=== PATIENT | female | born 1940 | race Caucasian/White ===

== ENCOUNTER 2017-08-18 10:18 | Emergency (ER) | payer MEDICARE, OTHER ==
[2017-08-18] MEDS ORDERED: Ondansetron INJ* 2 MG/ML VIAL IV ONE (14:18)
[2017-08-18] MEDS ORDERED: NS 0.9% 1000 ML* 1,000 ML IV ONE (14:18)
--- NOTE | 2017-08-18 14:18 | RAD ---
INDICATION: Nausea and vomiting. COMPARISON: Comparison is made with a prior KUB series from November 17, 2016. Correlation is also made with an x-ray study of the lumbar spine from January 05, 2017. TECHNIQUE: Supine and upright views of the abdomen were obtained. FINDINGS: The small bowel and colon appear nondistended. No free intraperitoneal air is seen. There is a moderate amount of retained stool present. There are multiple compression fractures of dorsal and lumbar vertebra which appear to be present and better visualized on the prior x-ray study of the lumbar spine from December 2016. IMPRESSION: NO EVIDENCE FOR ACUTE FINDING.
[2017-08-18 17:27] VITALS: BP 131/79
--- NOTE | 2017-08-19 18:16 | ED ---
Robert Davis Angela, scribed for Morris Nice MD on 08/18/17 at 1418 . Complex/Multi-Sys Presentation - HPI Summary HPI Summary: This pt is a 77 y/o female presenting to [facility] c/o nausea and vomiting since 5 days ago. Pt notes she has recently stopped psychotropic medications. Pt is unable to keep medications down. She has decreased PO intake. Pt denies abd pain , fever, chills, chest pain, SOB, recent long travel. She has not used any recent antibiotics. PSHx: . - History Of Current Complaint Chief Complaint: EDNauseaVomitDiarrh Time Seen by Provider: 08/18/17 14:13 Hx Obtained From: Patient Onset/Duration: Lasting Days Timing: Days Associated Signs And Symptoms: Positive: Nausea, Vomiting. Negative: SOB, Chest Pain, Diarrhea, Abdominal Pain, Back Pain, Fever - Allergies/Home Medications Allergies/Adverse Reactions: Allergies Allergy/AdvReac Type Severity Reaction Status Date / Time Bupropion [From Wellbutrin] AdvReac Intermediate Shakes Verified 11/13/16 09:35 PMH/Surg Hx/FS Hx/Imm Hx Endocrine/Hematology History: Denies: Hx Anticoagulant Therapy, Hx Diabetes, Hx Thyroid Disease Cardiovascular History: Reports: Hx Angina, Hx Hypercholesterolemia Denies: Hx Coronary Artery Disease, Hx Hypertension, Hx Myocardial Infarction , Hx Pacemaker/ICD, Hx Valvular Heart Disease Respiratory History: Reports: Hx Asthma, Hx Sleep Apnea - Current CPAP user Denies: Hx Chronic Obstructive Pulmonary Disease (COPD) GI History: Denies: Hx Ulcer Musculoskeletal History: Reports: Hx Osteoporosis Sensory History: Reports: Hx Contacts or Glasses Denies: Hx Hearing Aid Opthamlomology History: Reports: Hx Contacts or Glasses Psychiatric History: Reports: Hx Depression Denies: Hx Panic Disorder - Cancer History Hx Chemotherapy: No Hx Radiation Therapy: No - Surgical History Surgery Procedure, Year, and Place: csections x2 40 years ago. broken ankles bilat repair. broken shoulder repair Infectious Disease History: Yes Infectious Disease History: Denies: Hx Clostridium Difficile, Hx Hepatitis, Hx Human Immunodeficiency Virus (HIV), Hx Shingles, Hx Tuberculosis, Traveled Outside the [place] in Last 30 Days - Family History Known Family History: Positive: Cardiac Disease - father [place] in 40s, Other - breast cancer mother 65 - Social History Alcohol Use: Rare Hx Substance Use: No Substance Use Type: Reports: None Hx Tobacco Use: No Smoking Status (MU): Never Smoked Tobacco Review of Systems Negative: Fever, Chills Positive: Vomiting, Nausea. Negative: Abdominal Pain Genitourinary: Negative Skin: Negative Neurological: Negative All Other Systems Reviewed And Are Negative: Yes Physical Exam - Summary Physical Exam Summary: VITAL SIGNS: Reviewed. GENERAL: ~Patient is a well-developed and nourished female who is lying comfortable in the stretcher. ~Patient is not in any acute respiratory distress. HEAD AND FACE: No signs of trauma. ~No ecchymosis, hematomas or skull depressions. No sinus tenderness. EYES: PERRLA, EOMI x 2, No injected conjunctiva, no nystagmus. EARS: Hearing grossly intact. Ear canals and tympanic membranes are within normal limits. MOUTH: Oropharynx within normal limits. Oral mucosa is a little dry. NECK: Supple, trachea is midline, no adenopathy, no JVD, no carotid bruit, no c- spine tenderness, neck with full ROM. CHEST: Symmetric, no tenderness at palpation LUNGS: Clear to auscultation bilaterally. No wheezing or crackles. CVS: Regular rate and rhythm, S1 and S2 present, no murmurs or gallops appreciated. ABDOMEN: Soft, non-tender. No signs of distention. No rebound no guarding, and no masses palpated. Bowel sounds are normal. EXTREMITIES: FROM in all major joints, no edema, no cyanosis or clubbing. NEURO: Alert and oriented x 3. No acute neurological deficits. Speech is normal and follows commands. SKIN: Dry and warm Triage Information Reviewed: Yes Vital Signs On Initial Exam: Initial Vitals Temp Pulse Resp BP Pulse Ox 98.1 F 92 20 147/69 97 08/18/17 10:52 08/18/17 10:52 08/18/17 10:52 08/18/17 10:52 08/18/17 10:52 Vital Signs Reviewed: Yes Diagnostics - Vital Signs Vital Signs Temp Pulse Resp BP Pulse Ox 08/18/17 12:35 98.3 F 80 20 133/73 100 08/18/17 10:52 98.1 F 92 20 147/69 97 - Laboratory Lab Statement: Any lab studies that have been ordered have been reviewed, and results considered in the medical decision making process. - Radiology Abd XR Xray Interpretation: No Acute Changes - IMPRESSION: No evidence for acute findings. ED physician has reviewed this radiology report and agrees. Radiology Interpretation Completed By: Radiologist - EKG 1424 Cardiac Rate: NL - 73 bpm EKG Rhythm: Sinus Rhythm EKG Interpretation: Left bundle branch block. Complex Multi-Symp Course/Dx Assessment/Plan: This pt is a 77 y/o female presenting to [facility] c/o nausea and vomiting since 5 days ago. Pt notes she has recently stopped psychotropic medications. Pt is unable to keep medications down. She has decreased PO intake. Pt denies abd pain, fever, chills, chest pain, SOB, recent long travel. She has not used any recent antibiotics. PSHx: . I obtained bloodwork. In the ED course, the pt was given IV fluids and Zofran. The pts symptoms resolved with IV fluids and Zofran. The pt is tolerating POs without nausea and vomiting. The bloodwork was never sent; however, the pt is feeling better and has no current complaints. Since the pt wants to go home, I discharged the pt home without any blood work done. She was recommended to return to the ED for any worsening nausea, vomiting, or other complaints. Pt understands and agrees. - Diagnoses Provider Diagnoses: Nausea and vomiting Discharge - Discharge Plan Condition: Stable Disposition: HOME Prescriptions: Ondansetron ODT TAB* [Zofran 4 MG Odt TAB*] 4 mg PO Q6H PRN #10 tab.odt PRN Reason: Vomiting Patient Education Materials: Acute Nausea and Vomiting (ED) Referrals: Khloe Pineda MD [Primary Care Provider] - Additional Instructions: Please follow up with your primary care provider. The documentation as recorded by the Robert hong Angela accurately reflects the service I personally performed and the decisions made by me, Morris Nice MD.
== END 2017-08-18 17:26 | disposition home or self-care (01) ==
LOC: ED 10:18
DX: R11.2 Nausea with vomiting, unspecified (principal)
CPT/HCPCS: 74020; 93005; 96361; 96374; 99283; J2405

== ENCOUNTER 2017-10-18 11:41 | Emergency (ER) | payer MEDICARE, OTHER ==
[2017-10-18 11:58] VITALS: BP 157/77
--- NOTE | 2017-10-18 12:19 | RAD ---
INDICATION: Lateral knee pain after a fall the previous day COMPARISON: None TECHNIQUE: 4 view radiograph of the right knee. FINDINGS: Depicted best on the lateral view, there is a fracture at the mid-level patella. The remaining bones are otherwise intact and appropriately aligned. Degenerative changes include loss of joint space height involving the medial greater than lateral compartments. There is a small to moderate joint effusion. Sclerotic bony density overlying the distal metaphyseal medullary cavity of the femur has a chronic appearance. IMPRESSION: Nondisplaced fracture of the right patella.
--- NOTE | 2017-10-18 12:49 | UC ---
Blu Davis Benjamin, scribed for Morris Goldberg MD on 10/18/17 at 1227 . Knee Pain HPI - HPI Summary HPI Summary: 77yo female c/o right knee pain and right knee cap swelling after falling on asphalt floor yesterday afternoon. Pt cannot completely straighten or bend it due to pain and swelling PMHx of sleep apnea, mild cognitive impairment, depression, and anxiety. Surgical hx of ankle and shoulder fx. FHx of DM and CAD. - History of Current Complaint Chief Complaint: UCLowerExtremity Stated Complaint: RIGHT KNEE PAIN Time Seen by Provider: 10/18/17 11:53 - Allergies/Home Medications Allergies/Adverse Reactions: Allergies Allergy/AdvReac Type Severity Reaction Status Date / Time Bupropion [From Wellbutrin] AdvReac Intermediate Shakes Verified 11/13/16 09:35 PMH/Surg Hx/FS Hx/Imm Hx Respiratory History: COPD Psychological History: Anxiety, Depression Other History Of: Negative For: Anticoagulant Therapy - Surgical History Surgical History: Yes Surgery Procedure, Year, and Place: csections x2 40 years ago. broken ankles bilat repair. broken shoulder repair - Family History Known Family History: Positive: Cardiac Disease - father [place] in 40s, Diabetes, Other - breast cancer mother 65 - Social History Occupation: Retired Lives: Alone Alcohol Use: Rare Substance Use Type: None Smoking Status (MU): Never Smoked Tobacco - Immunization History Most Recent Influenza Vaccination: 2014 Most Recent Tetanus Shot: unknown Most Recent Pneumonia Vaccination: 2013 Review of Systems Constitutional: Negative Skin: Negative Eyes: Negative ENT: Negative Respiratory: Negative Cardiovascular: Negative Gastrointestinal: Negative Genitourinary: Negative Motor: Negative Neurovascular: Negative Musculoskeletal: Arthralgia - right knee pain, Decreased ROM - right knee, due to pain and swelling, Edema - right knee cap Neurological: Negative Psychological: Negative All Other Systems Reviewed And Are Negative: Yes Physical Exam Triage Information Reviewed: Yes Appearance: Well-Appearing, No Pain Distress Vital Signs: Initial Vital Signs Temp 97.3 F 10/18/17 11:54 Pulse 97 10/18/17 11:54 Resp 18 10/18/17 11:54 BP 157/77 10/18/17 11:54 Pulse Ox 98 10/18/17 11:54 Vital Signs Reviewed: Yes ENT: Positive: Normal ENT inspection Dental Exam: Normal Respiratory Exam: Normal Cardiovascular Exam: Normal Cardiovascular: Positive: RRR, No Murmur Abdomen Description: Positive: Nontender Musculoskeletal: Positive: Other: - right knee with STS, effusion, no redness. She has tenderness over the right patella. Neurological: Positive: Alert, Muscle Tone Normal Skin Exam: Normal Diagnostics - Radiology Knee XR Xray Interpretation: Positive (See Comments) - IMPRESSION: Nondisplaced fracture of the right patella. Radiology Interpretation Completed By: Radiologist - ED physician has reviewed this radiology report and agrees. Knee Pain Course/Dx - Course Course Of Treatment: Reviewed pts medication and allergy lists. High Blood pressure noted. The patient Has non displace fracture patella. She will fu with ortho. She feels she can manage at home alone with knee immobilizer and her walker. - Differential Dx/Diagnosis Provider Diagnoses: patella fracture. hypertension Discharge - Discharge Plan Condition: Good Disposition: HOME Patient Education Materials: Patellar Fracture (ED), Hypertension (ED) Referrals: Khloe Pineda MD [Primary Care Provider] - 1 Day Prashant Hernandez MD [Medical Doctor] - 1 Day The documentation as recorded by the Blu hong Benjamin accurately reflects the service I personally performed and the decisions made by , Morris Goldberg MD.
== END 2017-10-18 12:50 | disposition home or self-care (01) ==
LOC: UCEAST 11:41
DX: S82.001A Unspecified fracture of right patella, initial encounter for closed fracture (principal); W19.XXXA Unspecified fall, initial encounter; Y93.9 Activity, unspecified; Y92.9 Unspecified place or not applicable; Y99.9 Unspecified external cause status; I10 Essential (primary) hypertension; G31.84 Mild cognitive impairment of uncertain or unknown etiology
CPT/HCPCS: 99212; G0463

== ENCOUNTER 2018-07-21 09:11 | Day surgery (SDC) | payer MEDICARE, OTHER ==
[2018-07-21] MEDS ORDERED: traMADol TAB* 50 MG PO ONE (09:40)
--- NOTE | 2018-07-21 10:30 | RAD ---
INDICATION: Right wrist injury COMPARISON: None TECHNIQUE: AP, lateral, and oblique views were obtained. FINDINGS: There is osteopenia. There is impacted and displaced intra-articular distal radial fracture. There is a fracture from the ulnar. There is associated soft tissue deformity. Underlying osteoarthritic changes present about the carpal bones, radiocarpal joint, and base of the thumb. IMPRESSION: IMPACTED AND DISPLACED INTRA-ARTICULAR DISTAL RADIAL FRACTURE. SMALL AVULSION FROM THE ULNAR STYLOID.
--- NOTE | 2018-07-21 10:53 | ED ---
Upper Extremity Pain - HPI Summary HPI Summary: Patient is a 78-year-old female presenting to the ED after a fall during aerobics class onto the right hand. She endorses pain to the right wrist. Obvious deformity noted to the ulnar side of the right wrist. Endorses numbness and tingling into all fingertips. Denies any pain to the hand or to the elbow. Pulses +2 intact bilaterally. Good cap refill. Ice with good relief. Denies any other pain or injuries. She has never injured the wrist in the past. Small abrasion to the ulnar side of the right wrist with notable swelling. - History of Current Complaint Chief Complaint: EDExtremityUpper Stated Complaint: RT WRIST INJURY Time Seen by Provider: 07/21/18 09:21 Hx Obtained From: Patient Onset/Duration: Started Hours Ago Timing: Constant Severity Initially: Moderate Severity Currently: Moderate Pain Location: Wrist Character: Aching Aggravating Factor(s): Movement, Lifting, Flexion, Extension Alleviating Factor(s): Rest, Ice Associated Signs & Symptoms: Positive: Swelling Related History: Dominant Hand Right - Risk Factors Non-Orthopedic Risk Factor: Negative DVT Risk Factors: Negative Compartment Syndrome Risk Factors: Pain - Allergies/Home Medications Allergies/Adverse Reactions: Allergies Allergy/AdvReac Type Severity Reaction Status Date / Time bupropion Allergy Shakes Verified 07/21/18 09:17 PMH/Surg Hx/FS Hx/Imm Hx Previously Healthy: Yes Endocrine/Hematology History: Denies: Hx Anticoagulant Therapy, Hx Diabetes, Hx Thyroid Disease Cardiovascular History: Reports: Hx Angina, Hx Hypercholesterolemia Denies: Hx Coronary Artery Disease, Hx Hypertension, Hx Myocardial Infarction , Hx Pacemaker/ICD, Hx Valvular Heart Disease Respiratory History: Reports: Hx Asthma, Hx Sleep Apnea - Current CPAP user Denies: Hx Chronic Obstructive Pulmonary Disease (COPD) GI History: Denies: Hx Ulcer Musculoskeletal History: Reports: Hx Osteoporosis Sensory History: Reports: Hx Contacts or Glasses Denies: Hx Hearing Aid Opthamlomology History: Reports: Hx Contacts or Glasses Psychiatric History: Reports: Hx Depression Denies: Hx Panic Disorder - Cancer History Hx Chemotherapy: No Hx Radiation Therapy: No - Surgical History Surgery Procedure, Year, and Place: csections x2 40 years ago. broken ankles bilat repair. broken shoulder repair - Immunization History Hx Pertussis Vaccination: No Immunizations Up to Date: Unable to Obtain/Confirm Infectious Disease History: No Infectious Disease History: Denies: Hx Clostridium Difficile, Hx Hepatitis, Hx Human Immunodeficiency Virus (HIV), Hx of Known/Suspected MRSA, Hx Shingles, Hx Tuberculosis, Hx Known/ Suspected VRE, Hx Known/Suspected VRSA, History Other Infectious Disease, Traveled Outside the [place] in Last 30 Days - Family History Known Family History: Positive: None - reviewed & noncontributory, Cardiac Disease - father [place] in 40s, Diabetes, Other - breast cancer mother 65 - Social History Occupation: Unemployed Lives: With Family Alcohol Use: Rare Hx Substance Use: No Substance Use Type: Reports: None Hx Tobacco Use: No Smoking Status (MU): Never Smoked Tobacco Review of Systems Constitutional: Negative Negative: Fever, Chills, Fatigue, Skin Diaphoresis Negative: Palpitations, Chest Pain Negative: Shortness Of Breath, Cough Negative: Abdominal Pain, Vomiting, Diarrhea, Nausea Positive: Arthralgia - right wrist pain and deformity Skin: Negative Neurological: Negative All Other Systems Reviewed And Are Negative: Yes Physical Exam Triage Information Reviewed: Yes Vital Signs On Initial Exam: Initial Vitals Temp Pulse Resp BP Pulse Ox 96.4 F 80 18 139/69 93 07/21/18 09:14 07/21/18 09:14 07/21/18 09:14 07/21/18 09:14 07/21/18 09:14 Vital Signs Reviewed: Yes Appearance: Positive: Well-Appearing, Well-Nourished Skin: Positive: Warm, Skin Color Reflects Adequate Perfusion Head/Face: Positive: Normal Head/Face Inspection Eyes: Positive: EOMI, SAMUEL, Conjunctiva Clear Neck: Positive: Supple Respiratory/Lung Sounds: Positive: Clear to Auscultation, Breath Sounds Present Cardiovascular: Positive: RRR, Pulses are Symmetrical in both Upper and Lower Extremities Musculoskeletal: Positive: Limited @ - right wrist flexion and extension Neurological: Positive: Speech Normal Psychiatric: Positive: Affect/Mood Appropriate Diagnostics - Vital Signs Vital Signs Temp Pulse Resp BP Pulse Ox 07/21/18 09:14 96.4 F 80 18 139/69 93 - Laboratory Lab Statement: Any lab studies that have been ordered have been reviewed, and results considered in the medical decision making process. - Radiology No standard instances Xray Interpretation: Positive (See Comments) Radiology Interpretation Completed By: Radiologist - IMPRESSION: IMPACTED AND DISPLACED INTRA-ARTICULAR DISTAL RADIAL FRACTURE. SMALL AVULSION FROM THE ULNAR STYLOID. Course/Dx - Course Course Of Treatment: During the course treatment, the patient's evaluated for right ulnar wrist deformity following a FOOSH injury. Hematoma block placed to the dorsum of the wrist with good effect. Finger traps placed for 20 minutes. Exaggerated fracture and used traction with flexion. Post reduction shows inadequate safe placement. Discussed case with Dr. Chappell who agrees to take to surgery. She is given 1 tramadol in the ED on arrival, however remains NPO at this time. AFSHAN Dawson to see patient. Patient was not splinted at this time due to going to surgery since this evening. Small abrasion to the ulnar side possibly indicating open fracture. Will defer to surgery. - Diagnoses Differential Diagnosis/HQI/PQRI: Positive: Fracture (Open), Fracture (Closed) Provider Diagnoses: Distal radius fracture, right Discharge - Sign-Out/Discharge Documenting (check all that apply): Patient Departure Signing out patient TO: Sukhi Hays - Discharge Plan Condition: Stable Disposition: ADMITTED TO [facility] Referrals: Khloe Pineda MD [Primary Care Provider] - - Billing Disposition and Condition Condition: STABLE Disposition: Admitted to [facility]
--- NOTE | 2018-07-21 12:57 | RAD ---
INDICATION: Traumatic fracture of the right wrist status post reduction. COMPARISON: Comparison is made with a prior x-ray study of the right wrist of the same day. TECHNIQUE: 3 views of the right wrist were obtained. FINDINGS: There is prominent diffuse soft tissue swelling which is progressed from the prior study. Again note is made of a severely comminuted intra-articular fracture of the distal radius with impaction and displacement of the fracture fragments. There is slight decreased dorsal angulation of the fracture fragments compared with the prior study otherwise no significant change. IMPRESSION: 1. DIFFUSE SOFT TISSUE SWELLING DEMONSTRATED INTERVAL PROGRESSION. 2. COMMINUTED DISPLACED INTRA-ARTICULAR FRACTURE OF THE DISTAL RADIUS.
--- NOTE | 2018-07-21 14:44 | PN ---
Hospitalist Progress Note Date of Service: 07/21/18 HOSPITALIST ADDENDUM Please see full dictated note. Patient is optimized for proposed orthopedic procedure. RCRI is 0 predicting 0.4 % risk of cardiac complications. Recommended BiPAP on the post op period for her ANN.
--- NOTE | 2018-07-21 15:09 | RAD ---
Indication: Evaluate distal radius fracture. Comparison: July 21, 2018 radiographs. Technique: Noncontrast CT RIGHT wrist and hand. Incomplete inclusion of the tips of the fingers in the [id number]. Multiplanar reformation. Report: Bone density appears decreased throughout. Severely comminuted and impacted intra-articular fracture of the distal radius with up to 0.8 cm AP by 1.0 cm transverse articular surface discontinuity and severe incongruity due to magnitude of comminution and impaction. No associated fracture of the ulna evident. Resulting posttraumatic ulnar plus variance. No carpal bone fractures evident. 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 Diffuse soft tissue swelling. IMPRESSION: #. Severely comminuted and impacted intra-articular fracture of the distal radius as described.
[2018-07-21] MEDS ORDERED: ceFAZolin 2 GM PREMIX in ORs 2 GM/50 ML BAG IVPB ONE (15:16)
[2018-07-21] MEDS ORDERED: Propofol* 10 MG/ML 20 ML BTL IV PUSH ONE (15:18)
[2018-07-21] MEDS ORDERED: Lidocaine 2% PF * 5 ML VIAL ONE (15:18)
[2018-07-21] MEDS ORDERED: Famotidine IV* 10 MG/ML 2 ML (20 mg) IV SLOW PU ONE (15:20)
[2018-07-21] MEDS ORDERED: Dexamethasone IV* 4 MG/ML 1 ML (4 MG) IV SLOW PU ONE (15:20)
[2018-07-21] MEDS ORDERED: Famotidine IV* 10 MG/ML 2 ML (20 mg) ONE (15:25)
[2018-07-21] MEDS ORDERED: Dexamethasone IV* 4 MG/ML 1 ML (4 MG) ONE (15:26)
--- NOTE | 2018-07-21 15:27 | HP ---
DATE OF ADMISSION: 07/21/2018. PROVIDER: Dr. Sukhi Hays* (dictated by SURYA Mcwilliams). HISTORY OF PRESENT ILLNESS: The patient is a 78-year-old female who presented to the ED after a fall during aerobics class onto the right hand. She states that initially after the fall she had severe deformity of her hand and a little tear of the skin on the pinky side. She states that she is having some tingling in the digits of her hand and some swelling. She presented to the ER immediately. Her last meal was 7:30 a.m., a granola bar, banana, orange juice, and a cup of coffee. PAST MEDICAL HISTORY: 1. Depression. 2. Anxiety. 3. Sleep apnea. 4. Spinal stenosis. PAST SURGICAL HISTORY: 1. Left ankle fracture ORIF. 2. Right ankle fracture ORIF. 3. Shoulder fracture ORIF. 4. times two. No anesthesia problems during any of these surgeries. MEDICATIONS: 1. Mirtazapine 30 mg. 2. Atomoxetine 25 mg. 3. Vitamin D. 4. Vitamin E. 5. Vitamin B12. 6. Aspirin 81 mg. 7. ProAir 90 mg. ALLERGIES: WELLBUTRIN CAUSES PRURITUS. SOCIAL HISTORY: The patient lives with her son. She denies any drinking, smoking, or drug use. She is right hand dominant. REVIEW OF SYSTEMS: General: The patient denies any fevers, chills or night sweats. No known anesthesia problems. HEENT: The patient denies headaches, lightheadedness or syncopal episode. Cardiothoracic: The patient denies any chest pain, heart palpitations, or edema. Pulmonary: The patient denies any shortness of breath with exertion, chronic cough. GI: The patient denies any nausea, vomiting, diarrhea, or constipation. : Denies any nocturia, urinary frequency, urgency, or history of UTI's. MSK: The patient denies any chronic or intermittent back pain or fracture. She does admits to having spinal stenosis that did cause her pain at one point. She also admits to the current complaint. Neuro: The patient admits to some tingling of the fingertips on the right hand after the injury. Denies any numbness, seizure, or stroke. Integument: The patient admits to a small abrasion. Denies any rashes, lumps, or open sores. Endocrine: The patient denies any diabetes or thyroid issues. PHYSICAL EXAMINATION GENERAL: The patient is alert and oriented times three. No acute distress. Appropriate mood and appropriate affect. HEENT: Normocephalic, atraumatic. Hearing and vision are grossly intact. CARDIO: Regular rate and rhythm. Normal S1 and S2. No appreciable S3 or S4. No murmurs, rubs or gallops. PULMONARY: Lungs are clear to auscultation bilaterally with no wheezes, rales, or rhonchi. MUSCULOSKELETAL: Right upper extremity: Inspection of the right upper extremity reveals a gross deformity of the right wrist with ulnar deviation it seems. The patient has a small, what appears to be a skin abrasion, almost like a skin tear on the ulnar aspect of the wrist. This may indicate an open fracture, although the suspicion is a little lower. She is able to wiggle all of her fingers. She does have a 2+ radial pulse. Sensation is intact, although she does have some tingling reported. IMAGING STUDIES: Two x-rays were obtained and reviewed today. One pre and one postreduction attempt. The x-rays show a severely comminuted intra-articular fracture of the distal radius with impaction and displacement of the fracture fragments. There was decreased dorsal angulation of the fracture fragments on the second study when compared to the first x-rays obtained. IMPRESSION: Right intra-articular distal radius fracture, comminuted and impacted, possibly open. PLAN: 1. To the OR for a right distal radius ORIF and a washout of the fracture. 2. CT scan ordered to evaluate the fracture fragments. 3. Hospitalists consulted in order to medically clear her for surgery. 4. Patient is to remain NPO. SURYA MCWILLIAMS [id number]/[facility] #: [id number] BREANNA
[2018-07-21] MEDS ORDERED: Rocuronium* 10 MG/ML VIAL ONE (15:44)
[2018-07-21] MEDS ORDERED: fentaNYL* 50 MCG/ML 2 ML VIAL (100 MCG VIAL) ONE ×4 (15:45→19:48)
[2018-07-21] MEDS ORDERED: Bupivacaine 0.25% W/EPI* 10 ML SDV ONE (16:08)
--- NOTE | 2018-07-21 16:17 | CONS ---
CC: Dr. Khloe Pineda CONSULTATION REPORT: DATE OF CONSULT: 07/21/18 TIME OF EVALUATION: 2 p.m. PRIMARY CARE PROVIDER: Dr. Khloe Pineda. REQUESTING PHYSICIAN: Dr. Hays. CHIEF COMPLAINT: "I fell and hurt my arm." HISTORY OF PRESENT ILLNESS: Ms. Lauren is a 78-year-old lady with a past medical history of anxiety, depression, sleep apnea, on BiPAP; hyperlipidemia, who presents to the emergency room after sustainin g a mechanical fall in her aerobics class. She states that they were in the middle of choreography th at included stepping and turning and she lost her balance and tried to catch herself with her right a rm and developed immediate pain and was noted to have deformity. In the emergency room, the patient had a wrist x-ray that showed impacted and displaced intraarticula r distal radial fracture with small avulsion from the ulnar styloid. The patient denies any episodes of chest pain, shortness of breath, and states that she has very good exercise capacity. She can go up a couple flights of stairs with no chest pain or shortness of kobe th. 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 In 2014, the patient presented to the emergency room with complaints of chest pain and at that time s he was seen by Cardiology (Dr. Jain) because she was found to have a left bundle branch block that was new when compared to her prior EKG from 2010. At that time, she had a workup that included a tra nsthoracic echocardiogram with normal ejection fraction and no wall motion abnormalities, only associ ated with her left bundle branch block and that was negative for ischemia. PAST MEDICAL HISTORY: 1. Anxiety. 2. Depression. 3. Sleep apnea, on BiPAP. 4. Hyperlipidemia. MEDICATION LIST: 1. Albuterol HFA 2 puffs inhaled q.4 to 6 hours p.r.n. shortness of breath. 2. Aspirin 81 mg p.o. daily. 3. Atomoxetine 25 mg p.o. b.i.d. 4. Calcium plus vitamin D 1 tablet p.o. b.i.d. 5. Cholecalciferol 1000 units p.o. every other day. 6. Cyanocobalamin 1000 mcg p.o. daily. 7. Mirtazapine 30 mg p.o. at bedtime. 8. VESIcare 5 mg p.o. daily. 9. Vitamin E 400 units p.o. daily. 10. Zinc sulfate 220 mg p.o. at bedtime. ALLERGIES: With WELLBUTRIN, the patient had itching. FAMILY HISTORY: One sister of rheumatic heart disease. One brother had an MA in his 80s. Leesa jessica had an MA in his 60s. Mother of breast cancer in her 40s. SOCIAL HISTORY: No history of tobacco, alcohol, or drug use. She is a retried social worker psychiatric. Surro gate decision maker is her son, Marciano Carmona, phone number is [phone]. REVIEW OF SYSTEMS: A 14-point review of systems performed and all the pertinent negative and positiv e findings are in the HPI. PHYSICAL EXAM: Vital Signs: Temperature 96.9, heart rate is 80, respiratory rate is 16, oxygen satu ration is 100% on room air, blood pressure is 169/87. General: The patient is a pleasant, elderly la dy, sitting up in the ED stretcher, in no acute distress. HEENT: Pupils are equal. Moist mucous me mbranes. CVS: Normal S1, S2. Regular rate and rhythm. Chest: Breath sounds present bilaterally w ith no added sounds. Abdomen is soft. Bowel sounds present. Extremities: No edema. The patient zavala s deformity of her right wrist with an excoriation in the area of the styloid process. Neuro: She i s alert and oriented x3. Able to move all 4 extremities. DIAGNOSTIC STUDIES/LAB DATA: The patient had no labs done in the emergency room. Wrist x-ray showed an impacted and displaced intraarticular distal radial fracture with a small avuls ion from the ulnar styloid. EKG done on 07/21/18, at 13:57. EKG showed a left bundle branch block at 74 beats per minute with no significant change from her prior EKG from July 2017. ASSESSMENT AND PLAN: Ms. Lauren is a 78-year-old lady with a past medical history of anxiety, depress ion, obstructive sleep apnea, on BiPAP, hyperlipidemia, who presented to the emergency room after a m echanical fall, found to have a right wrist fracture. 1. Right wrist fracture. Management as per Ortho. The plan is for the patient to have surgical rep air of her fracture. She has no complaints of chest pain or dyspnea with exertion. Her EKG shows a left bundle branch block. Her RCRI is 0 predicting a risk of 0.4% of cardiac complications. The pat ient is optimized for procedure. We just recommend that she continues her BiPAP in the postop period . 2. Anxiety and depression. We will continue atomoxetine and mirtazapine. 3. DVT prophylaxis. Will be decided by Orthopedics. TIME SPENT: Approximately 45 minutes was spent with the patient's interview, medical records review, physical examination to complete this admission. [id number]/[facility] #: [id number]
[2018-07-21] MEDS ORDERED: Ondansetron INJ* 2 MG/ML VIAL ONE (18:29)
[2018-07-21] MEDS ORDERED: fentaNYL* 50 MCG/ML 2 ML VIAL (100 MCG VIAL) IV PRN (19:48)
[2018-07-21] MEDS ORDERED: DiMENhydriNATE IV* 50 MG/ML VIAL IV PUSH PRN (19:48)
[2018-07-21] MEDS ORDERED: oxyCODONE TAB* 5 MG TAB PO PRN (19:48)
[2018-07-21] MEDS ORDERED: Naloxone* 0.4 MG/ML 1 ML VIAL IV PRN (19:48)
[2018-07-21] MEDS ORDERED: oxyCODONE/Acetamin 5/325 MG* TAB PO PRN (19:48)
[2018-07-21] MEDS ORDERED: Ketorolac INJ* 30 MG/ML 1 ML VIAL IV PRN (19:48)
[2018-07-21] MEDS ORDERED: Ketorolac INJ* 30 MG/ML 1 ML VIAL ONE (19:49)
[2018-07-21] MEDS ORDERED: Labetalol IV* 5 MG/ML 20 ML VIAL ONE (19:49)
[2018-07-21] MEDS: Labetalol IV* 5 MG/ML 20 ML VIAL IV PUSH PRN ×3 (19:58→20:51)
[2018-07-21 21:13] VITALS: BP 149/76
--- NOTE | 2018-07-23 01:48 | OP ---
OPERATIVE NOTE: DATE OF OPERATION: 07/21/18 DATE OF : 38 SURGEON: Sukhi Hays MD FAMILY MEDICINE CHAIR: SURYA Rendon. A physician city carrier assistant was required for the length of the procedure for assistance with positioning, r etraction, instrumentation, and closure. ANESTHESIOLOGIST: Dr. Alphonse Gaines. ANESTHESIA: General anesthesia. PRE-OP DIAGNOSES: 1. Right distal radius fracture, comminuted, intraarticular, impacted. 2. Right wrist skin laceration. POST-OP DIAGNOSES: 1. Right distal radius fracture, comminuted, intraarticular, impacted. 2. Right wrist skin laceration. OPERATIVE PROCEDURE: 1. Open reduction internal fixation, right distal radius fracture, intraarticular, three or more fra gments with a dorsal spanning plate. 2. Laceration repair, right wrist, less than 2.5 cm. ANTIBIOTICS: Ancef 2 g. IV FLUIDS: 1100 cc crystalloid. TOURNIQUET TIME: 105 minutes at 250 mmHg. [id number]-AP-TZGJ TIME: Approximately 108 minutes, although the timer was not stopped at the end of the p rocedure, so this is an approximation. RADIATION: It is not yet available, but we used a mini C-arm. Exposure amount not currently availab le. SPECIMEN: None. IMPLANTS: Synthes dorsal spanning locking plate for the distal radius with eight locking screws thro [facility] it, four proximal and four distal. COMPLICATIONS: None. ESTIMATED BLOOD LOSS: Minimal. INDICATIONS FOR PROCEDURE: The patient is a 78-year-old woman, right hand dominant, who fell onto an outstretched right hand during an aerobics class, with subsequent pain and significant deformity of her right wrist. She described some tingling in the fingertips. She presented to the emergency room at [facility], [place] Distal radius fracture was noted on x-ray imaging. A closed reduction attempt after hematoma block w as made in the emergency room. This failed to improve alignment. I was consulted. I ordered a CT scan. There was a mention of a skin tear. It was not thought to be secondary to an open fracture, but it was not 100% clear. The patient was also in significant pain with some numbness and tingling in the fingertips. This started before the hematoma block was perfor med. The patient also had some visibly significant deformity of that wrist. For all these reasons, we admitted the patient to my service. It was convenient for the patient to go to the operating room the afternoon of her admission. The spitalist saw the patient, optimized and cleared the patient for surgery. CT scan was obtained that provided better clarity on fracture characteristics. It showed significant impaction at the fracture site with significant comminution. The patient opted for surgical management. I had asked the operating room to have a variety of fixation constructs available for surgery includi ng external fixator, dorsal spanning plate and volar locking plate as well as percutaneous pins and b one graft. However, after having evaluated the CT scan, I decided on a dorsal spanning plate. Discussed with the patient risks and potential complications of surgery including bleeding, infection , nerve or blood vessel injury, wrist pain, stiffness, osteoarthritis and hardware failure. I spoke with the patient that the dorsal spanning plate would not allow her to bend her wrist until it will be removed three to four months postoperatively. A neurovascular exam was performed by me in the holding area. The patient had motor and sensory func tion intact to all peripheral nerves in the hand. She described some decreased sensation only in the distal most finger tips. This was slightly different exam than had been obtained by anesthesia anjel ier, so I repeated the exam and got the same results as I had the first time. DESCRIPTION OF PROCEDURE: The patient signed a written consent in preoperative holding. Operative ex tremity was marked in preoperative holding. The patient was taken back to the operating room, placed supine on the operating room table. Hand table was applied. The patient was sedated and intubated. Tourniquet was applied to the right upper arm. Right upper extremity was prepped and draped with Pov idone iodine and then draped. Surgical time-out was performed. A traction device was applied along connecting to the fingers and running off the side of the hand table. Ten pounds were applied. Mini C-arm was brought in and showed adequate reduction. Esmarch was applied. I marked my skin incision sites with a marking pen based on my length of the pl ate. I made distal incision, dissecting down to second metacarpal. Then I made my proximal incision . I dissected down to radial shaft just dorsal and ulnar to the ECRB tendon. I took plate and slid it from distal to proximal down the second dorsal extensor tendon compartment. We obtained mini C-arm images with plate in place. I placed one non-locking screw through the second most distal hole in the distal set of holes in the plate into the second metacarpal shaft. My next move was to place a pin proximally. The traction device at this point malfunctioned and fell off the bed. It needed to be autoclaved to re-sterilize. Therefore, for the remainder of the case, I used an city carrier assistant to pull traction on the hand, right hand to simulate the 10 pounds of traction. Reduced bone with a longitudinal traction and placed a pin through the plate proximally. I obtained mini C-arm images that demonstrated adequate plate placement and adequate reduction. I filled the plate approximately and distally with locking screws in all four screw holes. Final x-ray views showed adequacy of plate placement in the second metacarpal and the radial shaft. Reduction of bone was not perfect as it never is, but was adequate. There was some dorsal tilt to the distal radius. There was a small defect at the fracture site along its radial border, however, radi al inclination looked good. Joint overall looked congruent. The wrist looked significantly less def ormed than when we had started. Irrigation. A closure of the proximal incision with three buried simple stitches using Vicryl 3-0 garcia tures in the subcutaneous tissue. A closure of the proximal and distal incisions with horizontal mat tress and simple stitches using nylon 4-0 sutures in the skin. Xeroform, 4x4s, sterile Webril, a daniel ster splint was applied, first a sugar tong and then a posterior slab about the elbow. Overwrapped wi th an Juan Antonio bandage. The patient was placed in a simple sling. DISPOSITION: The patient was discharged home postoperatively travelling home with a family member. She was to receive Percocet as needed for pain control. She will stay in the splint. Sling use will be as needed. The patient was encouraged via her family member as told by me to start moving her fin gers immediately to prevent stiffness. The patient will follow up with me in clinic in 7 to 10 days for x-rays and removal of splint. [id number]/[facility] #: [id number]
== END 2018-07-21 21:28 | disposition home or self-care (01) ==
LOC: ED 09:11 → OR 17:40
PROVIDERS: ATTEND Orthopaedic Surgery
DX: S52.571A Other intraarticular fracture of lower end of right radius, initial encounter for closed fracture (principal); S61.511A Laceration without foreign body of right wrist, initial encounter; W18.39XA Other fall on same level, initial encounter; Y93.A3 Activity, aerobic and step exercise; Y92.89 Other specified places as the place of occurrence of the external cause; M81.0 Age-related osteoporosis without current pathological fracture; J44.9 Chronic obstructive pulmonary disease, unspecified; F41.8 Other specified anxiety disorders; G47.33 Obstructive sleep apnea (adult) (pediatric); E78.5 Hyperlipidemia, unspecified; I44.7 Left bundle-branch block, unspecified
CPT/HCPCS: 93005; A9270-GY; C1713; C1776; J0690; J1100; J1885; J2405; J2704; J3010

== ENCOUNTER → 2018-11-03 08:32 | Day surgery (SDC) | payer MEDICARE, OTHER ==
[~2018-11-03 08:32] MED LIST: Buffered Lidocaine 0.9% SYRIN* 5 ML/SYR SYRINGE INTRADERM ONE; Bupivacaine 0.5% W/EPI SDV* 30 ML VIAL ONE; Clindamycin 900 MG/D5W BAG(*) 900 MG/50 ML BAG IVPB ONE; Dexamethasone IV* 4 MG/ML 1 ML (4 MG) IV SLOW PU ONE; Dexamethasone IV* 4 MG/ML 1 ML (4 MG) ONE; DiMENhydriNATE IV* 50 MG/ML VIAL IV PUSH PRN; Famotidine IV* 10 MG/ML 2 ML (20 mg) IV ONE; Famotidine IV* 10 MG/ML 2 ML (20 mg) ONE; HYDROcodone/ACETAMIN 5-325 MG* 1 TAB PO PRN; Ibuprofen TAB* 400 MG PO PRN; Lactated Ringers 1000 ML Bag* 1,000 ML IV SCH; Lidocaine 2% PF * 5 ML VIAL ONE; Naloxone* 0.4 MG/ML 1 ML VIAL IV PRN; Ondansetron INJ* 2 MG/ML VIAL ONE; Propofol* 10 MG/ML 20 ML BTL ONE; fentaNYL* 50 MCG/ML 2 ML VIAL (100 MCG VIAL) IV PRN; fentaNYL* 50 MCG/ML 2 ML VIAL (100 MCG VIAL) ONE; oxyCODONE/Acetamin 5/325 MG* TAB PO PRN
[2018-11-03 13:45] VITALS: BP 122/79
--- NOTE | 2018-11-06 09:02 | OP ---
DATE OF OPERATION: 11/03/18 [facility] DATE OF : 38 SURGEON: Sukhi Hays MD AUTOMOTIVE TIRE TESTER: Lizzeth Sanchez. ANESTHESIOLOGIST: Dr. Alphonse Gaines. ANESTHESIA: General anesthesia, local anesthesia. PRE-OP DIAGNOSES: 1. Retained hardware, right wrist, dorsal spanning wrist plate. 2. Status post 07/21/18 open reduction and internal fixation, right distal radius fracture with dorsal spanning plate. POST-OP DIAGNOSES: 1. Retained hardware, right wrist, dorsal spanning wrist plate. 2. Status post 07/21/18 open reduction and internal fixation, right distal radius fracture with dorsal spanning plate. OPERATIVE PROCEDURE: Removal of hardware, deep, right wrist dorsal spanning plate, requiring incisions over the hand and right forearm. ANTIBIOTICS: Ancef 2 g IV. IV FLUIDS: 800 cc crystalloid. TOURNIQUET TIME: Just over 31 minutes at 250 mmHg. [id number]-BU-[id number] TIME: 31 minutes. RADIATION EXPOSURE: Mini C-arm utilized, current number of seconds in exposure not available but very limited. SPECIMEN: Synthes dorsal spanning plate along with 8 screws were removed. IMPLANTS: None. COMPLICATIONS: None. ESTIMATED BLOOD LOSS: Minimal. INDICATIONS FOR PROCEDURE: The patient is a 78-year-old woman, right hand dominant, who lives with her son, who in June 2018 sustained a right distal radius fracture, comminuted, impacted, intraarticular. Operative intervention was appropriate to improve alignment. Due to the significant impacted and osteopenic nature of the distal radius, a dorsal spanning plate was more appropriate than a volar locking plate. More can be read about this in my history and physical and my operative note for that first procedure. The patient underwent first procedure on 07/21/18 by me, an open reduction and internal fixation right distal radius fracture with dorsal spanning plate. The patient recovered without incident postoperatively. She has been out of wrist brace. She regained full range of motion in her fingers with some physical therapy. She has reported no pain about the right wrist. The patient had wrist plate in for 3-1/2 months prior to removal. This is according to generally accepted recommendations for this plate to be implanted for 3 to 4 months prior to removal. As well, x-rays obtained postoperatively demonstrated a definitive, significant bony healing at the distal radius fracture site. While this might not yet be 100% healing, there was evidence of significant healing which was sufficient for me. No tenderness to palpation at the fracture site on exam. I discussed with the patient the risks and potential complications of surgery. DESCRIPTION OF PROCEDURE: In preoperative holding, the patient signed a written consent. Operative extremity was marked in preoperative holding. The patient was taken back to the operating room and kept on the stretcher. Hand table was applied. A general anesthesia was utilized by Anesthesia. A tourniquet was placed about the right upper arm. Right upper extremity was prepped and draped. Surgical time-out was performed. Esmarch was applied and the tourniquet was elevated to 250 mmHg. The patient's prior surgical incision scars had healed very nicely but I was still able to dislodge their location. I could also palpate plates through the distal and to a lesser extent the proximal incision scar. I made an incision over the distal incision scar overlying the second metacarpal. I incised skin with a knife. I then used spreading dissection scissors to dissect down to the plate through the subcutaneous tissues. I inspected all neurovascular structures encountered. I cleared off the plate with a rongeur, freer elevator, periosteal elevator, curette. I then used a screwdriver to remove all four screws in the distal end of the plate. All were removed without incident or breakage. I next moved to the mid forearm. I made an incision in the skin through the prior incision scar. I dissected through subcutaneous tissue down, just ulnar to the ECRB tendon. I was able to palpate the plate. I exposed it nicely using curette, rongeur, freer and periosteal elevator. I removed all four screws with a screwdriver. I loosened the plate on both sides with freer elevator. I then removed the plate through the distal incision. I next debrided some fibrous tissue from both the radial shaft and the second metacarpal with a rongeur and periosteal elevator. I used a curette to debride the screw tracts and bone to facilitate faster healing. I irrigated both wounds. I closed her both wounds with buried simple stitches in the subcutaneous layer using Vicryl 3-0 suture. I closure her each skin incision with running stitches using nylon 4-0 suture. Local anesthesia, Marcaine with epinephrine was injected into the subcutaneous tissue just proximal to each skin incision. A total of less than 20 cc was utilized. Xeroform, 4x4's, sterile Webril. A volar plaster splint was then applied to the wrist. There was over wrapping with an Juan Antonio bandage. The patient was awakened, extubated and brought to the PACU. The patient was placed in a simple sling. It should be stated that after all the hardware was removed, I took several mini C- arm images. These images demonstrated that all hardware had been successfully removed from the radial shaft and second metacarpal. It also confirmed the reduction of the distal radius and the lack of any motion of that bone with full flexion and extension of the wrist passively. The patient had some stiffness in extension but more flexion than extension was present. There was some offset of the distal radius as are often with these, but reduction is certainly improved from prior to first procedure. Significant bony healing is present about the distal radius. DISPOSITION: The patient was discharged in a volar splint. She was given wound care instructions. I told the patient that she could remove that splint at day 3 so that she could shower at that point. She has instructions to after showering, cover those incisions up with sterile dressing. The patient can put herself into a removable wrist brace after she applies the dressing. Those incisions should be covered up for at least 7 days postoperatively. The patient is to follow up with me in clinic 10 to 14 days postoperatively. She was given a limited supply of Percocet to take as needed for pain control postoperatively. The patient will start physical therapy to regain as much range of motion of the wrist as possible. [id number]/[facility] #: [id number] BREANNA
== END | disposition home or self-care (01) ==
LOC: OR 08:32
PROVIDERS: ATTEND Orthopaedic Surgery
DX: S52.571D Other intraarticular fracture of lower end of right radius, subsequent encounter for closed fracture with routine healing (principal); F41.8 Other specified anxiety disorders; G47.33 Obstructive sleep apnea (adult) (pediatric); E03.9 Hypothyroidism, unspecified; J45.909 Unspecified asthma, uncomplicated; I44.7 Left bundle-branch block, unspecified; X58.XXXD Exposure to other specified factors, subsequent encounter; Y92.9 Unspecified place or not applicable
CPT/HCPCS: 76000; 88300; J1100; J2405; J2704; J3010

== ENCOUNTER 2020-02-06 16:02 | Emergency (ER) | payer MEDICARE, OTHER ==
--- NOTE | 2020-02-06 16:08 | ED ---
HPI Chest Pain - HPI Summary HPI Summary: STEMI code called from field by EMS at 1600, ETA 2 minutes This patient is an 79 y/o female presenting to [facility] via EMS for chest pain today. EMS reports at 1530 patient became nauseous. Patient then had sudden onset of left sided chest pain described as sharp with radiation to her left arm. EMS administered 324 mg aspirin. Currently patient denies any chest pain, cough or shortness of breath. PMHx includes left bundle branch block, sleep apnea, hyperlipidemia, anxiety, depression. Per nurse's note patient has hx of VT and is waiting for ICD. Patient denies hx of NE. STEMI code was canceled at 1608. Home Medications Medication Instructions Recorded Confirmed Type Aspirin 81 mg CHEW TAB* [Aspirin 81 mg PO QPM 01/22/13 02/06/20 History Low Dose TAB*] Albuterol inh POWDER (NF) [Proair 2 puff INH .Q4-6H PRN 09/03/15 02/06/20 History Respiclick] Cyanocobalamin TAB* [Vitamin B12 1,000 mcg PO 1200 09/03/15 02/06/20 History TAB*] Calcium Carbonate/Vitamin D3 1 tab PO BID 01/06/16 02/06/20 History [Calcium 1000 + D] Zinc Sulfate CAP* [Zinc-220 CAP*] 22 mg PO BEDTIME 07/21/18 02/06/20 History Levothyroxine TAB* [Synthroid 25 25 mcg PO QAM 10/24/18 02/06/20 History MCG TAB*] Atomoxetine(NF) [Strattera(NF)] 25 mg PO BID 02/06/20 02/06/20 History Atorvastatin* [Lipitor*] 80 mg PO DAILY 02/06/20 02/06/20 History Carvedilol TAB* [Coreg TAB*] 12.5 mg PO BID 02/06/20 02/06/20 History Hydrocortisone 2.5% CREAM(NF) 1 applic TOPICAL BID PRN 02/06/20 02/06/20 History Ibuprofen TAB* [Advil TAB*] 400 mg PO Q12HR PRN 02/06/20 02/06/20 History Losartan TAB* [Cozaar TAB*] 100 mg PO DAILY 02/06/20 02/06/20 History Mometasone NASAL (NF) [Nasonex 2 spray BOTH NARES DAILY 02/06/20 02/06/20 History (NF)] - History of Current Complaint Hx Obtained From: Patient, EMS Onset/Duration: Started Hours Ago, Still Present Timing: Lasting Hours Initial Severity: Moderate Current Severity: None Pain Intensity: 0 Pain Scale Used: 0-10 Numeric Chest Pain Location: Left Anterior Chest Pain Radiates: Yes Chest Pain Radiates To:: Arm - left Character: Sharp/Stabbing - sharp Aggravating Factor(s): Nothing Alleviating Factor(s): Nothing Associated Signs and Symptoms: Positive: Chest Pain, Nausea. Negative: Shortness of Breath, Fever, Cough - Allergy/Home Medications Allergies/Adverse Reactions: Allergies Allergy/AdvReac Type Severity Reaction Status Date / Time bupropion Allergy Shakes Verified 11/03/18 09:05 Home Medications: Home Medications Aspirin 81 mg CHEW TAB* [Aspirin Low Dose TAB*] 81 mg PO QPM 01/22/13 [History Confirmed 02/06/20] Albuterol inh POWDER (NF) [Proair Respiclick] 2 puff INH .Q4-6H PRN 09/03/15 [ History Confirmed 02/06/20] Cyanocobalamin TAB* [Vitamin B12 TAB*] 1,000 mcg PO 1200 09/03/15 [History Confirmed 02/06/20] Calcium Carbonate/Vitamin D3 [Calcium 1000 + D] 1 tab PO BID 01/06/16 [History Confirmed 02/06/20] Zinc Sulfate CAP* [Zinc-220 CAP*] 22 mg PO BEDTIME 07/21/18 [History Confirmed 02/06/20] Levothyroxine TAB* [Synthroid 25 MCG TAB*] 25 mcg PO QAM 10/24/18 [History Confirmed 02/06/20] Atomoxetine(NF) [Strattera(NF)] 25 mg PO BID 02/06/20 [History Confirmed ] Atorvastatin* [Lipitor*] 80 mg PO DAILY 02/06/20 [History Confirmed 02/06/20] Carvedilol TAB* [Coreg TAB*] 12.5 mg PO BID 02/06/20 [History Confirmed 02/06/20 ] Hydrocortisone 2.5% CREAM(NF) 1 applic TOPICAL BID PRN 02/06/20 [History Confirmed 02/06/20] Ibuprofen TAB* [Advil TAB*] 400 mg PO Q12HR PRN 02/06/20 [History Confirmed ] Losartan TAB* [Cozaar TAB*] 100 mg PO DAILY 02/06/20 [History Confirmed 02/06/20 ] Mometasone NASAL (NF) [Nasonex (NF)] 2 spray BOTH NARES DAILY 02/06/20 [History Confirmed 02/06/20] PMH/Surg Hx/FS Hx/Imm Hx Endocrine/Hematology History: Denies: Hx Anticoagulant Therapy, Hx Diabetes, Hx Thyroid Disease Cardiovascular History: Reports: Hx Angina, Hx Hypercholesterolemia Denies: Hx Coronary Artery Disease, Hx Hypertension, Hx Myocardial Infarction , Hx Pacemaker/ICD, Hx Valvular Heart Disease Respiratory History: Reports: Hx Asthma - PRN INHALER, Hx Sleep Apnea Denies: Hx Chronic Obstructive Pulmonary Disease (COPD) GI History: Reports: Hx Gastroesophageal Reflux Disease, Other GI Disorders - HX OF ESOPHAGEAL STRICTURES- HAD PROCEDURE FOR Denies: Hx Ulcer Musculoskeletal History: Reports: Hx Arthritis, Hx Osteoporosis Sensory History: Reports: Hx Cataracts - HX OF, Hx Contacts or Glasses - GLASSES Denies: Hx Hearing Aid Opthamlomology History: Reports: Hx Cataracts - HX OF, Hx Contacts or Glasses - GLASSES Psychiatric History: Reports: Hx Anxiety - ON MEDICATION FOR, Hx Depression - ON MEDICATION FOR Denies: Hx Panic Disorder - Cancer History Hx Chemotherapy: No Hx Radiation Therapy: No - Surgical History Surgery Procedure, Year, and Place: c-sections x2 40 years ago. broken ankles bilat repair. broken shoulder repair-RIGHT. RIGHT WRIST SURGERY. KNEE ARTHROSCOPY Hx Anesthesia Reactions: No Infectious Disease History: Denies: Hx Clostridium Difficile, Hx Hepatitis, Hx Human Immunodeficiency Virus (HIV), Hx of Known/Suspected MRSA, Hx Shingles, Hx Tuberculosis, Hx Known/ Suspected VRE, Hx Known/Suspected VRSA, History Other Infectious Disease, Traveled Outside the [place] in Last 30 Days - Family History Known Family History: Positive: None - reviewed & noncontributory, Cardiac Disease - father NE in 40s, Diabetes, Other - breast cancer mother 65 - Social History Alcohol Use: Rare Hx Substance Use: No Substance Use Type: Reports: None Hx Tobacco Use: No Smoking Status (MU): Never Smoked Tobacco Have You Smoked in the Last Year: No Review of Systems Negative: Fever Positive: Chest Pain Negative: Shortness Of Breath, Cough Positive: Nausea All Other Systems Reviewed And Are Negative: Yes Physical Exam - Summary Physical Exam Summary: VITAL SIGNS: Reviewed. GENERAL: Patient is a well-developed and nourished female who is lying comfortable in the stretcher. Patient is not in any acute respiratory distress. HEAD AND FACE: No signs of trauma. No ecchymosis, hematomas or skull depressions. No sinus tenderness. EYES: PERRLA, EOMI x 2, No injected conjunctiva, no nystagmus. EARS: Hearing grossly intact. Ear canals and tympanic membranes are within normal limits. MOUTH: Oropharynx within normal limits. NECK: Supple, trachea is midline, no adenopathy, no JVD, no carotid bruit, no c- spine tenderness, neck with full ROM. CHEST: Symmetric, no tenderness at palpation LUNGS: Clear to auscultation bilaterally. No wheezing or crackles. CVS: Regular rate and rhythm, S1 and S2 present, no murmurs or gallops appreciated. ABDOMEN: Soft, non-tender. No signs of distention. No rebound, no guarding, and no masses palpated. Bowel sounds are normal. EXTREMITIES: FROM in all major joints, no edema, no cyanosis or clubbing. NEURO: Alert and oriented x 3. No acute neurological deficits. Speech is normal and follows commands. SKIN: Dry and warm Triage Information Reviewed: Yes Vital Signs On Initial Exam: Initial Vitals Temp Pulse Resp BP Pulse Ox 96.9 F 68 18 183/98 98 02/06/20 16:13 02/06/20 16:13 02/06/20 16:13 02/06/20 16:13 02/06/20 16:13 Vital Signs Reviewed: Yes Procedures - Sedation Patient Received Moderate/Deep Sedation with Procedure: No Diagnostics - Laboratory Result Diagrams: 02/06/20 16:15 02/06/20 16:15 Lab Statement: Any lab studies that have been ordered have been reviewed, and results considered in the medical decision making process. - Radiology Chest XR Radiology Interpretation Completed By: Radiologist Summary of Radiographic Findings: IMPRESSION: No active cardiopulmonary disease is noted. Dr. Nice has reviewed this report. - EKG 16:05 Cardiac Rate: NL - at 62 bpm EKG Rhythm: Sinus Rhythm EKG Comparison: No Significant Change - Similar to prior EKG on 07/21/18. Summary of EKG Findings: EKG at 1605 shows normal sinus rhythm at a rate of 62 bpm. Left bundle branch block. Similar to previous EKG on 07/21/18. This EKG was interpreted and reviewed by ED physician. Re-Evaluation - Re-Evaluation First Eval Re-Evaluation Time: 19:57 Comment: Reviewed results with patient. He will be discharged home with follow up from her PCP. Chest Pain Course/Dx - Course Course Of Treatment: STEMI code called from the field by EMS at 1600, ETA 2 minutes. Patient arrives via EMS to the ED at 1603. Dr. Nice immediately at bedsid. STEMI code canceled at 1608. Assessment/Plan: STEMI code called from field by EMS at 1600, ETA 2 minutes. This patient is an 79 y/o female presenting to [facility] via EMS for chest pain today. EMS reports at 1530 patient became nauseous. Patient then had sudden onset of left sided chest pain described as sharp with radiation to her left arm. EMS administered 324 mg aspirin. Currently patient denies any chest pain, cough or shortness of breath. PMHx includes left bundle branch block, sleep apnea, hyperlipidemia, anxiety, depression. Per nurse's note patient has hx of VT and is waiting for ICD. Patient denies hx of NE. STEMI code was canceled at 1608. In the ED course the patient was placed in a mysql developer, IV access was obtained, IV fluids started. Past medical records reviewed. Blood test w/o a significant abnormality except for sodium 130, chloride 96, glucose 114, TSH 6.7. The first Troponin is 0.01. EKG shows a Normal Sinus Rhythm with a Left Bundle Branch Block which is similar to previous EKG. Chest x-ray impression: No active cardiopulmonary disease noted. Heart to score is equal to 3. Patient reports that she had a stress test last month and was not conclusive for acute coronary syndrome. The second troponin is 0.01. The patient continues to be asymptomatic. Therefore, the patient will be discharged home with follow up from her primary care physician. Patient is hemodynamically stable, alert and oriented 3. - Chest Pain Differential Diagnosis/HQI/PQRI: Acute NE, ACS, Angina, CHF, Chest Wall, GI Disease, Lower Respiratory Infection - Diagnoses Provider Diagnoses: Chest pain During the Visit The Following Alert/Code Occurred: STEMI - called from the field by EMS at 1600, ETA 2 minutes. STEMI code canceled at 1608. Discharge ED - Sign-Out/Discharge Documenting (check all that apply): Patient Departure - Discharge - Discharge Plan Condition: Stable Disposition: HOME Patient Education Materials: Chest Pain (ED) Referrals: Khloe Pineda MD [Primary Care Provider] - Additional Instructions: FOLLOW UP WITH YOUR PRIMARY CARE PROVIDER IN 2-3 DAYS. RETURN TO THE ED FOR ANY NEW OR WORSENING SYMPTOMS. - Billing Disposition and Condition Condition: STABLE Disposition: Home - Attestation Statements Document Initiated by Scribe: Yes Documenting Scribe: Opal Jones Provider For Whom [facility] is Documenting (Include Credential): Morris Nice MD Scribe Attestation: Opal Davis, scribed for Morris Nice MD on 02/08/20 at 0353. Scribe Documentation Reviewed: Yes Provider Attestation: The documentation as recorded by the Opal hong accurately reflects the service I personally performed and the decisions made by , Morris Nice MD Status of Scribe Document: Viewed
--- OUTSIDE RECORDS SUMMARY | 2020-02-06 16:08 | XMS REPORT | Continuity of Care Document ---
:1940 External Reference #:[id number] Author Name Khloe Pineda M.D. Address [address] [place] [address] Care Team Providers Name Role Phone [facility] [place] [facility] - Emergency Care Care Team Information Onsite Health Coach Khloe Pineda M.D. - Family Medicine Care Team Information Onsite Health Coach Unavailable Bereket Patterson MD - Neurological Care Team Information Onsite Health Coach [phone] Surgery Chrissie Lopez MD - Psychiatry Care Team Information Onsite Health Coach Visiting Nurse Services - Home Health Care Team Information Onsite Health Coach [phone] [facility] & Care Team Information Onsite Health Coach [phone] lymphedema - Physical Therapist [facility] Physical Care Team Information Onsite Health Coach Therapy - Physical Therapy [facility] - Care Team Information Onsite Health Coach [phone] Physical Therapist Problems Active Problems Provider Date Moderate recurrent major depression Khloe Pineda M.D. Onset: 07/15/2015 Hyperlipidemia Khloe Pineda M.D. Onset: 07/15/2015 Degenerative joint disease involving Khloe Pineda M.D. Onset: 07/15/2015 multiple joints Anxiety state Khloe Pineda M.D. Onset: 07/15/2015 Osteoporosis Khloe Pineda M.D. Onset: 07/15/2015 Obstructive sleep apnea syndrome Khloe Pineda M.D. Onset: 07/15/2015 Urinary incontinence Khloe Pineda M.D. Onset: 07/15/2015 Essential tremor Khloe Pineda M.D. Onset: 07/15/2015 Left bundle branch block Khloe Pineda M.D. Onset: 11/11/2015 Low back pain Chris Goldman M.D. Onset: 05/03/2016 Attention deficit hyperactivity disorder Khloe Pineda M.D. Onset: 10/08/2016 Essential hypertension Khloe Pineda M.D. Onset: 10/08/2016 Epigastric pain Cornelio Betancourt M.D. Onset: 12/09/2016 Depressive disorder Cornelio Betancourt M.D. Onset: 12/09/2016 Female stress incontinence Cornelio Betancourt M.D. Onset: 12/09/2016 Pathological fracture of vertebra Khloe Pineda M.D. Onset: 01/11/2017 Impaired fasting glycaemia Khloe Pineda M.D. Onset: 09/14/2018 Senile asthenia Khloe Pineda M.D. Onset: 09/14/2018 Hypothyroidism Khloe Pineda M.D. Onset: 09/20/2019 Chronic congestive heart failure Khole Pineda M.D. Onset: 11/05/2019 Chronic systolic heart failure Khloe Pineda M.D. Onset: 12/24/2019 Social History Type Date Description Comments Sex Unknown Tobacco Use Start: Unknown Never Smoked Cigarettes ETOH Use Rare Tobacco Use Start: Unknown Patient has never smoked Smoking Status Reviewed: 09/20/19 Patient has never smoked Exercise Type/Frequency Exercises regularly Allergies, Adverse Reactions, Alerts Active Allergies Reaction Severity Comments Date Wellbutrin tremor? 07/15/2015 Medications Active Medications SIG Qnty Indications Ordering Date Provider Atorvastatin Calcium 1 by mouth every 30tabs I20.9 Khole [place], 2018 80mg day M.D. Tablets Blood Pressure Monitor take blood 1Monitor R03.0 Khloe [place], 03/15/2019 Digital/Automatic pressure daily M.D. Misc Levothyroxine Sodium 1 by mouth every 90tabs E03.9 Khloe [place], 2017 day in in the M.D. 25mcg Tablets morning Proair HFA 2 puffs every 1units R06.2 Khloe [place], 07/15/2015 108(90Base) 4-6 h as needed M.D. mcg/Act Aerosol cough/wheeze Nasonex 2 sprays in each 51gm Khloe Pineda, 50mcg/Act nostril daily M.D. Suspension (scent free) Aspirin Ec 1 by mouth every Unknown 81mg Tablets day DR Calcium/Vitamin D 1 po bid Unknown 800mg/1000 Units Tablets Vitamin B-12 1 po qd Unknown 1000mcg Tablets Atomoxetine HCL 1 tab twice a 60caps Dori 25mg day [place], Capsules Afnp-C Zinc 1 po qhs Unknown 22mg Tablets Hydrocortisone apply daily to Unknown 2.5% Cream affected area Ibuprofen 200 2 by mouth every Unknown 200mg 12 hours as Tablets needed Losartan Potassium 1 by mouth every Unknown 100mg day Tablets Carvedilol take 1 tablet by Unknown 12.5mg Tablets mouth twice a day Immunizations CPT Code Status Date Vaccine Lot # [id number] Given 09/20/2019 Influenza Vac, Quadrivalent, Slit Virus, Im [id number] 87029 Given 09/14/2018 Pneumococcal Conjugate Vacc-13 [id number] 86626 Given 09/14/2018 High-Dose, Influenza Virus Vacccine-fluzone 65 and [id number] older 27914 Given 08/04/2017 High-Dose, Influenza Virus Vacccine-fluzone 65 and [id number] older 52314 Given 11/02/2016 Influenza Vac, Quadrivalent, Slit Virus, Im [id number] 52977 Given 08/19/2015 Influenza Vac, Quadrivalent, Slit Virus, Im [id number] 13058 Given 11/05/2014 Tdap Tetanus, W Pertussis 80322 Given 06/20/2008 Pneumococcal Immunization Vital Signs Date Vital Result Comment 12/24/2019 1:42pm BP Systolic 112 mmHg BP Diastolic 52 mmHg Heart Rate 80 /min Body Temperature 97.5 F Height 56.75 inches 4'8.75" measured Weight 130.00 lb BMI (Body Mass Index) 28.4 kg/m2 09/20/2019 10:58am BP Systolic 116 mmHg BP Diastolic 70 mmHg Heart Rate 94 /min Body Temperature 97.9 F Respiratory Rate 12 /min Height 56.75 inches 4'8.75" measured Weight 128.00 lb BMI (Body Mass Index) 27.9 kg/m2 Results Test Acquired Date Facility Test Result H/L Range Note Basic Metabolic Panel 10/31/2019 [facility] Sodium 133 mmol/L Low 135-145 Potassium 4.5 mmol/L Normal 3.5-5.0 Chloride 98 mmol/L Low 101-111 Co2 Carbon Dioxide 31 mmol/L Normal 22-32 Anion Gap 4 mmol/L Normal 2-11 Glucose 85 mg/dL Normal 70-100 Blood Urea Nitrogen 17 mg/dL Normal 6-24 Creatinine 0.81 mg/dL Normal 0.51-0.95 BUN/Creatinine Ratio 21.0 High 8-20 Calcium 8.9 mg/dL Normal 8.6-10.3 Egfr Non- 68.0 >60 Egfr 82.3 >60 1 Laboratory test 10/31/2019 [facility] B-Type 232 pg/mL High <=100 finding Natriuretic Peptide BNP Laboratory test 09/20/2019 [facility] Hemoglobin A1c 4.9 % 4.1-5.7 finding (607)- - (Fma) Lipid Profile 09/20/2019 [facility](fma) Cholesterol 253 mg/dL High 120-200 Triglycerides 75 mg/dL 30-200 HDL Cholesterol 71 mg/dL 30-85 LDL (Calculated) 167 CALC High 0-129 VLDL Cholesterol 15 mg/dL 0-50 HDL Risk Factor 3.6 CALC 0.0-4.4 Comprehensive Metabolic 09/20/2019 [facility](fma) Sodium 138 mEq/L 134-149 Prof Potassium 4.7 mEq/L 3.6-5.5 Chloride 103 mEq/L 94-112 Carbon Dioxide 29 mEq/L 21-32 Glucose 81 mg/dL 70-105 BUN 14 mg/dL 6-26 Creatinine 0.9 mg/dL 0.6-1.4 BUN/Creat Ratio 15.6 CALC 8.0-36.0 Calcium 9.7 mg/dL 8.6-10.2 Total Protein 6.9 g/dL 6.4-8.3 Albumin 4.4 g/dL 3.8-5.5 Globulin 2.5 g/dL 2.0-4.8 A/G Ratio 1.8 CALC 0.6-2.3 Alk. Phosphatase 59 U/L 30-110 Alt (SGPT) 14 U/L 7-35 Ast (Sgot) 23 U/L 5-34 Total Bilirubin 0.7 mg/dL 0.2-1.3 GFR Non- >60 ml/min/1.73m^ >=60 GFR >60 ml/min/1.73m^ >=60 Laboratory test finding 09/20/2019 [facility](fma) TSH 4.13 mIU/L 0.50-6.00 Free T4 1.28 ng/dL 0.75-1.54 CBC Electronic Fma 09/20/2019 [facility] Inocencia(a) WBC 3.6 x10^3/UL Low 4.0-10.0 RBC 4.09 x10^6/UL 3.93-6.00 HGB 13.3 g/dL 12.0-17.0 HCT 41 % 35-50 MCV 99.0 fL High 80.0-95.0 2 MCH 32.2 pg 25.6-32.2 MCHC 32.8 g/dL 32.2-36.0 RDW-CV 13.0 % 11.6-14.4 PLT 269 x10^3/UL 163-400 MPV 10.7 fL 9.4-12.4 Shabnam# 2.09 x10^3/UL 1.56-6.13 Lymph# 0.91 x10^3/UL Low 1.18-3.74 Wheeler# 0.50 x10^3/UL 0.24-0.82 Eos # 0.0 x10^3/UL 0.0-0.5 Baso # 0.02 x10^3/UL 0.01-0.08 Shabnam% 58.7 % 34.0-70.0 Lymph % 25.6 % 20.0-52.0 Wheeler% 14.0 % High 5.0-12.0 Eos% 0.8 % 0.7-7.0 Baso% 0.6 % 0.1-1.2 1 Because ethnic data is not always readily available, this report includes an eGFR for both -Americans and non- Americans. The National Kidney Disease Education Program (NKDEP) does not endorse the use of the MDRD equation for patients that are not between the ages of 18 and 70, are , have extremes of body size, muscle mass, or nutritional status, or are non- or non-. According to the National Kidney Foundation, irrespective of diagnosis, the stage of the disease is based on the level of kidney function: Stage Description GFR(mL/min/1.73 m(2)) 1 Kidney damage with normal or decreased GFR 90 2 Kidney damage with mild decrease in GFR 60-89 3 Moderate decrease in GFR 30-59 4 Severe decrease in GFR 15-29 5 Kidney failure <15 (or dialysis) 2 consistent w/ previous results Procedures Date Code Description Status 09/20/2019 18506 Electrocardiogram Complete Completed 01/05/2017 93534307 Mammogram Completed 12/24/2015 97639204 Colonoscopy Completed Medical Devices Description No Information Available Encounters Type Date Location Provider Dx Diagnosis Office Visit 09/20/2019 Main Office Khloe Pineda M.D. Z00.01 Encounter for 10:20a general adult medical exam w abnormal findings M81.0 Age-related osteoporosis w/o current pathological fracture E78.5 Hyperlipidemia, unspecified M25.561 Pain in right knee F33.1 Major depressive disorder, recurrent, moderate F90.9 Attention-deficit hyperactivity disorder, unspecified type R06.02 Shortness of breath E03.9 Hypothyroidism, unspecified R41.81 Age-related cognitive decline R73.01 Impaired fasting glucose I20.9 Angina pectoris, unspecified Z23 Encounter for immunization Z12.31 Encntr screen mammogram for malignant neoplasm of breast Assessments Date Code Description Provider 12/24/2019 I50.22 Chronic systolic (congestive) heart failure Khloe Pineda M.D. 12/24/2019 F33.1 Major depressive disorder, recurrent, moderate Khloe Pineda M.D. 12/24/2019 E78.5 Hyperlipidemia, unspecified Khloe Pineda M.D. 12/24/2019 I44.7 Left bundle-branch block, unspecified Khloe Pineda M.D. 09/20/2019 Z00.01 Encounter for general adult medical examination Khloe Pineda M.D. with abnormal findings 09/20/2019 M81.0 Age-related osteoporosis without current Khloe Pineda M.D. pathological fractu 09/20/2019 E78.5 Hyperlipidemia, unspecified Khloe Pineda M.D. 09/20/2019 M25.561 Pain in right knee Khloe Pineda M.D. 09/20/2019 F33.1 Major depressive disorder, recurrent, moderate Khloe Pineda M.D. 09/20/2019 F90.9 Attention-deficit hyperactivity disorder, Khloe Pineda M.D. unspecified type 09/20/2019 R06.02 Shortness of breath Khloe Pineda M.D. 09/20/2019 E03.9 Hypothyroidism, unspecified Khloe Pineda M.D. 09/20/2019 R41.81 Age-related cognitive decline Khloe Pineda M.D. 09/20/2019 R73.01 Impaired fasting glucose Khloe Pineda M.D. 09/20/2019 I20.9 Angina pectoris, unspecified Khloe Pineda M.D. 09/20/2019 Z23 Encounter for immunization Khloe Pineda M.D. 09/20/2019 Z12.31 Encounter for screening mammogram for malignant Khloe Pineda M.D. neoplasm of breast Plan of Treatment 12/24/2019 - Khloe Pineda M.D.I50.22 Chronic systolic (congestive) heart failureComments:Patient was advised to call or return if there was a significant increase in peripheral edema, shortness of breath, or weightFollow up:6moF33.1 Major depressive disorder, recurrent, acynogvfU98.5 Hyperlipidemia, unspecifiedComments:Goal LDL is <130, HDL >40, Triglycerides < 200I44.7 Left bundle-branch block, unspecifiedAllComments:Medication Management Patient Understands medications she's taking? Yes No Are there Barriers to Adherence? Yes No Has the patient been asked about herbal supplements and therapies, and OTC meds? Yes NoImmunizations/Injections:Influenza vac quadrivalent preservative free 6 months and up Functional Status Description No Information Available Mental Status Description No Information Available Referrals Refer to Reason for Referral Status Appt Date Karen Lazo MD Consult and treat. Chemical nuclear stress Scheduled 2018 test. [address] [place] [address] [phone] [facility] PHYSICAL THERAPY evaluate and Scheduled treat right knee pain [address] [place] [address] [phone]
[2020-02-06 16:25] LABS: ABS Eosinophils 0.1 10^3/ul (0-0.6); ABS Lymphocytes 1.2 10^3/ul (1.0-4.8); ABS Monocytes 0.6 10^3/ul (0-0.8); ABS Neutrophils 3.5 10^3/ul (1.5-7.7); Eosinophil % 1.5 %; Hematocrit 36 % (35-47); Hemoglobin 12.6 g/dL (12.0-16.0); Lymphocyte % 22.7 %; Mean Corpuscular HGB Conc 35 g/dL (31-36); Mean Corpuscular Hemoglobin 33 pg (27-31); Mean Corpuscular Volume 95 fL (80-97); Mean Platelet Volume 7.8 fL (7.4-10.4); Platelet Count 238 10^3/uL (150-450); Red Blood Count 3.81 10^6 /uL (3.70-4.87); Red Cell Distribution Width 14 % (10-15); White Blood Count 5.4 10^3/uL (3.5-10.8)
[2020-02-06 16:41] LABS: Albumin 3.9 g/dL (3.2-5.2); Albumin/Globulin Ratio 1.3 (1-3); BUN/Creatinine Ratio 24.4 (8-20); Calcium 9.5 mg/dL (8.6-10.3); EGFR African American 81.2 (>60); EGFR Non-African American 67.1 (>60); Magnesium 1.9 mg/dL (1.9-2.7); Potassium 4.1 mmol/L (3.5-5.0); Total Bilirubin 0.9 mg/dL (0.2-1.0); Total Protein 6.9 g/dL (6.4-8.9)
[2020-02-06 16:44] LABS: Troponin I 0.01 ng/mL (<0.03)
[2020-02-06 16:46] LABS: CKMB ng/mL 6.3 ng/mL (0.6-6.3)
[2020-02-06 17:17] LABS: TSH (Thyroid Stimulating Horm) 6.76 mcIU/mL (0.34-5.60)
[2020-02-06 20:02] LABS: Urine Appearance Clear; Urine Bilirubin Negative (Negative); Urine Blood Negative (Negative); Urine Color Yellow; Urine Glucose Negative (Negative); Urine Ketones Negative (Negative); Urine Nitrite Negative (Negative); Urine Protein Negative (Negative); Urine Urobilinogen Negative (Negative)
[2020-02-06 20:05] VITALS: BP 157/83
== END 2020-02-06 20:48 | disposition home or self-care (01) ==
LOC: ED 16:02
DX: R07.89 Other chest pain (principal); R11.0 Nausea; I44.7 Left bundle-branch block, unspecified; E78.5 Hyperlipidemia, unspecified; F41.9 Anxiety disorder, unspecified; F32.9 Major depressive disorder, single episode, unspecified; Z79.82 Long term (current) use of aspirin; Z79.890 Hormone replacement therapy; Z79.899 Other long term (current) drug therapy; Z88.8 Allergy status to other drugs, medicaments and biological substances
CPT/HCPCS: 36415; 71045; 80053; 81003; 82550; 82553; 83605; 83735; 83880; 84443; 84484; 85025; 85730; 93005; 99283